=== PATIENT | male | born 1955 | race Caucasian/White ===

== ENCOUNTER 2017-06-12 16:43 | Inpatient (IN) | payer OTHER ==
[~2017-06-12] VITALS: Ht 175.3 cm; Wt 79.4 kg
[~2017-06-12 16:43] MED LIST: AUGMENTIN 875-1 EACH PO; LEVAQUIN500 M1 PO; PROMETHAZINE-C118 ML PO; TESSALON PERLE100 M1 PO; VENTOLIN HFA18 GM INH
[2017-06-12 18:09] LABS: ABSOLUTE BASOPHIL COUNT 0 /CUMM (0.0-0.2); ABSOLUTE EOSINOPHIL COUNT 0.2 /CUMM (0.0-0.7); ABSOLUTE LYMPH COUNT 0.8 /CUMM (1.2-3.4); ABSOLUTE MONOCYTE COUNT 0.5 /CUMM (0.10-0.60); BASOPHIL % 0.5 % (0.0-2.0); EOSINOPHIL % 3.1 % (0-5); GRANULOCYTE % 79.6 % (42.2-75.2); MEAN CORPUSCULAR HGB 29.7 PG (27.0-31.0); MEAN CORPUSCULAR HGB CONC 33.1 G/DL (33.0-37.0); MEAN CORPUSCULAR VOLUME 89.8 FL (80.0-94.0); MEAN PLATELET VOLUME 7.8 FL (7.4-10.4); PLATELET COUNT 294 /CUMM (130-400); RBC DISTRIBUTION WIDTH 13.5 % (11.5-14.5); RED BLOOD CELL CT 4.67 /CUMM (4.70-6.10); WHITE BLOOD CELL COUNT 7.5 /CUMM (4.8-10.8)
--- NOTE | 2017-06-12 18:37 | RADIOLOGY REPORT ---
EXAMINATION: XR CHEST CLINICAL INFORMATION: Shortness of breath COMPARISON: None TECHNIQUE: 2 views of the chest were obtained. FINDINGS: The lungs are well expanded. There is no focal consolidation, edema, or effusion. No pneumothorax. The cardiomediastinal silhouette is within normal limits. No acute osseous abnormality. IMPRESSION: No acute pulmonary findings.
--- NOTE | 2017-06-12 19:54 | ED DYSPNEA/ASTHMA COMPLAINT ---
History of Present Illness General Chief Complaint: Dyspnea (COPD, CHF, Other) Stated Complaint: DIFFICULTY BREATHING Source: patient Exam Limitations: no limitations Vital Signs & Intake/Output Vital Signs & Intake/Output Vital Signs Date Time Temp Pulse Resp B/P B/P Pulse O2 O2 Flow FiO2 Mean Ox Delivery Rate 06/12 2104 93 Nasal 2.0L Cannula 06/12 2032 84 Room Air 06/12 2019 90 06/12 1751 98.4 92 18 133/74 94 Room Air Room Air Allergies Coded Allergies: No Known Drug Allergies (11/27/15) Reconcile Medications Albuterol Sulfate (Ventolin Hfa) 18 GM HFA.AER.AD 2 PUF INH Q4-6 PRN PRN WHEEZE Amoxicillin/Potassium Clav (Augmentin 875-125 Tablet) 1 EACH TABLET 1 TAB PO BID bronchitis Benzonatate (Tessalon Perle) 100 MG CAPSULE 1-2 CAP PO TID PRN COUGH Levofloxacin (Levaquin) 500 MG TABLET 1 TAB PO DAILY BRONCHITIS Promethazine HCl/Codeine (Promethazine-Codeine Syrup) 118 ML SYRUP 5-10 ML PO Q4-6 PRN COUGH ONE HUNDRED TWENTY CC... [id number] Triage Note: PT TO ED WITH C/O SOB X 6 MONTHS, TODAY "COULDN'T WALK ACROSS THE ROOM, RAN OUT OF BREATH, CAN'T LAY DOWN, OR SLEEP, COUGH WHEN LAYING DOWN". Triage Nurses Notes Reviewed? yes Onset: Gradual Duration: 6 MONTHS Timing: recent history Severity: moderate Activities at Onset: none Prior Episodes/Possible Cause: occasional episodes Modifying Factors: Improves With: immobilization. Worsens With: movement. Associated Symptoms: cough HPI: Patient is a 61-year-old smoker presenting to the emergency department complaint of increasing shortness of breath over the past 6 months, and dry intermittently productive cough over the past several weeks. Has been using mved-ynl-dkftaic cough medication without relief. Denies any fevers or chills. Denies chest pain or palpitations. Patient has been using his 's nebulizer treatment with some relief at home. Has never been diagnosed with COPD. Has never seen a resource room special education teacher. Patient reports that he does have a history of diabetes, currently not on any medications. Denies any lower extremity edema. No hemoptysis. Still smoking daily. (Kathy Barajas) Past History Travel History Traveled to [place] past 21 day No Medical History Any Pertinent Medical History? see below for history Neurological: NONE EENT: NONE Cardiovascular: NONE Respiratory: pneumonia Gastrointestinal: NONE Hepatic: NONE Renal: NONE Musculoskeletal: NONE Psychiatric: NONE Endocrine: diabetes Blood Disorders: NONE Cancer(s): NONE ADMISSIONS CONSULTANT/Reproductive: NONE Surgical History Surgical History: none Psychosocial History What is your primary language Setswana Tobacco Use: Current Daily Use Daily Tobacco Use Amount/Type: => 5 Cigarettes daily ETOH Use: denies use Illicit Drug Use: denies illicit drug use Family History Hx Contributory? No (Kathy Barajas) Review of Systems Review of Systems Constitutional: Reports: no symptoms. Comments Review of systems: See HPI, All other systems negative. Constitutional, no chills fever or weight loss HEENT: No visual changes no sore throat no congestion Cardiovascular: No chest pain ,palpitation , orthopnea or ankle swelling Skin, no jaundice no rashes Respiratory: No hemoptysis GI: No nausea no vomiting : No dysuria No hematuria Muscle skeletal: no back pain, no neck pain, Neurologic: No numbness no confusion, NO headaches Psych: No stress anxiety or depression,. Heme/endocrine: No bruising no bleeding no polyuria or polydipsia Immunology: No splenectomy or history of AIDS (Kathy Barajas) Physical Exam Physical Exam General Appearance: well developed/nourished, no apparent distress, alert, awake , comfortable Respiratory: decreased breath sounds, wheezing Comments: Well-developed well-nourished person in no acute distress HEENT: Pupils equally round and reactive to light and accommodation. Nose is atraumatic. External auditory canal and Tympanic membranes clear. Pharynx normal. No swelling or edema. Neck: Supple, no lymphadenopathy Cardiovascular: Regular rate and rhythms no murmurs rubs or gallops Respiratory: Chest nontender. No respiratory distress.diffuse wheezing and diminished breath sounds bilaterally. Extremity: No edema Neuro: Alert oriented x3 Skin: No appreciable rash on exposed skin, skin is warm and dry. Psych: Mood and affect is normal, memory and judgment is normal. Core Measures ACS in differential dx? No CVA/TIA Diagnosis No Sepsis Present: No Sepsis Focused Exam Completed? No (Kathy Barajas) Progress Differential Diagnosis: bronchitis, costochondritis, CHF, COPD, pneumonia Plan of Care: Orders Procedure Date/time Status Consistent Carbohydrate 1 06/13 B Active Misc Message 06/12 2106 Active ED Holding Orders 06/12 2106 Active Admit to inpatient 06/12 2106 Active Vital Signs 06/12 2106 Active Code Status 06/12 2106 Active Patient Data 06/12 2100 Active RAPID VIRAL INFLUENZA A 06/12 2042 Active Intake & Output 06/12 2032 Active FingerStick- Glucose 06/12 1756 Active TROPONIN LEVEL 06/12 1756 Complete D-DIMER 06/12 1756 Complete COMPREHENSIVE METABOLIC PANEL 06/12 1756 Complete CBC WITHOUT DIFFERENTIAL 06/12 1756 Complete B-TYPE NATRIURETIC PEP (BNP) 06/12 1756 Complete EKG 06/12 1756 Active Laboratory Tests 06/12/171758: Anion Gap 12, Estimated GFR > 60, BUN/Creatinine Ratio 18.8, Glucose 291 H, Calcium 9.5, Total Bilirubin 0.3, AST 31, ALT 61, Alkaline Phosphatase 70, Troponin I < 0.01, Zwp-P-Fgeuetsgbzt Pept 27.0, Total Protein 6.5, Albumin 4.1, Globulin 2.4, Albumin/Globulin Ratio 1.7, D-Dimer High Sensitivty < 200, CBC w Diff NO MAN DIFF REQ, RBC 4.67 L, MCV 89.8, MCH 29.7, MCHC 33.1, RDW 13.5, MPV 7.8, Gran % 79.6 H, Lymphocytes % 10.0 L, Monocytes % 6.8, Eosinophils % 3.1, Basophils % 0.5, Absolute Granulocytes 6.0, Absolute Lymphocytes 0.8 L, Absolute Monocytes 0.5, Absolute Eosinophils 0.2, Absolute Basophils 0 Microbiology 06/12 2099 NASOPHARYN: Influenza Virus A & B Rapid Smear - RECD Patient given IM Solu-Medrol and breathing treatment on arrival for symptoms. Patient able to move better air. Patient desaturates to 84% with ambulation to the bathroom, positive increased work of breathing on exam. Patient will be admitted for COPD exacerbation. Continue neb treatments, IV Solu-Medrol, pulmonology consultation, medication management, oxygen titration. Diagnostic Imaging: Viewed by Me: Radiology Read. Discussed w/RAD: Radiology Read. Radiology Impression: ATIENT: EDWARD KELLOGG PRESENT AGE: 61 PATIENT ACCOUNT NO: [id number] : 54 LOCATION: [facility] ORDERING PHYSICIAN: Kathy CHAVARRIA SERVICE DATE: 06/12/17 EXAM TYPE: RAD - XRY-CHEST XRAY, TWO VIEWS EXAMINATION: XR CHEST CLINICAL INFORMATION : Shortness of breath COMPARISON: None TECHNIQUE: 2 views of the chest were obtained. FINDINGS: The lungs are well expanded. There is no focal consolidation , edema, or effusion. No pneumothorax. The cardiomediastinal silhouette is within normal limits. No acute osseous abnormality. IMPRESSION: No acute pulmonary findings. DICTATED BY: Beck Cobian MD DATE/TIME DICTATED:1832 SYRUP SHED SUPERVISOR:AMBIKA DATE/TIME TRANSCRIBED:06/12/171832 CONFIDENTIAL, DO NOT COPY WITHOUT APPROPRIATE AUTHORIZATION. <Electronically signed in Other Vendor System> SIGNED BY: Beck Cobian MD 06/12/171836 Initial ED EKG: NSR 92 BPM, ARTIFACT (Kathy Barajas) Departure Departure Time of Disposition: 2041 Disposition: STILL A PATIENT Condition: Stable Clinical Impression Primary Impression: Bronchitis Secondary Impressions: Hyperglycemia Referrals: Giovani Verdugo MD Patient Has No Primary Care Dr (PCP/Family) Departure Forms: Customer Survey General Discharge Information Admission Note Spoke With: Regan Rodriguez MD Documentation of Exam: Documentation of any treatments & extenuating circumstances including Concerns Regarding Discharge (functional status, medication knowledge or non-compliance, living conditions, etc.) that warrant an admission rather than observation: Patient requiring supplemental oxygen which is new for this patient, requiring serial DuoNeb treatments, IV steroids, pulmonology consultation, medication management, discharge at this time is medically harmful, patient will likely require multiple day stay to titrate off oxygen. (Kathy Barajas) PA/SHEET METAL INSTALLER Co-Sign Statement Statement: ED Attending supervision documentation- [X] I saw and evaluated the patient. I have also reviewed all the pertinent lab results and diagnostic results. I agree with the findings and the plan of care as documented in the PA's/SHEET METAL INSTALLER's documentation. Patient presents for evaluation of worsening dyspnea secondary to COPD exacerbation. Physical examination reveals mild to moderate respiratory distress with decreased air entry bilaterally and scattered end expiratory wheezing with a bronchospastic cough. [X] I have reviewed the ED Record and agree with the PA's/SHEET METAL INSTALLER's documentation. [] Additions or exceptions (if any) to the PAs/SHEET METAL INSTALLER's note and plan are summarized below: [] (Melissa VÁSQUEZ,Michael Ye) Critical Care Note Critical Care Note Critical Care Time: non-applicable (Patrick CHAVARRIA,Kathy)
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
--- NOTE | 2017-06-13 05:10 | Admission Certification ---
Admission Certification Certification Statement - As attending physician, I certify that at the time of - admission, based on clinical presentation, severity of - symptoms, need for further diagnostic testing and - therapeutic interventions, and risk of adverse outcomes - without in-hospital treatment, in my clinical assessment, - this patient requires an acute hospital stay for a minimum - of two nights or longer. I have also considered psychsocial - factors such as support system, advanced age, financial - issues, cognitive issues, and failed out-patient treatments, - past re-admission history, safety of patient, and lack of - compliance as applicable. Specific rationale supporting this admission is: Suspected COPD with exacerbation
[2017-06-13 08:16] LABS: ABSOLUTE BASOPHIL COUNT 0 /CUMM (0.0-0.2); ABSOLUTE EOSINOPHIL COUNT 0 /CUMM (0.0-0.7); ABSOLUTE GRANULOCYTE CT 4.1 /CUMM (1.4-6.5); ABSOLUTE LYMPH COUNT 0.4 /CUMM (1.2-3.4); ABSOLUTE MONOCYTE COUNT 0 /CUMM (0.10-0.60); BASOPHIL % 0.4 % (0.0-2.0); EOSINOPHIL % 0.1 % (0-5); HEMATOCRIT 42.8 % (42-52); MEAN CORPUSCULAR HGB 29.9 PG (27.0-31.0); MEAN CORPUSCULAR HGB CONC 33.6 G/DL (33.0-37.0); MEAN CORPUSCULAR VOLUME 88.8 FL (80.0-94.0); MEAN PLATELET VOLUME 8.7 FL (7.4-10.4); PLATELET COUNT 272 /CUMM (130-400); RBC DISTRIBUTION WIDTH 13.1 % (11.5-14.5); RED BLOOD CELL CT 4.82 /CUMM (4.70-6.10); WHITE BLOOD CELL COUNT 4.6 /CUMM (4.8-10.8)
--- NOTE | 2017-06-13 08:32 | CT SCAN REPORT ---
EXAMINATION: CT CHEST WITHOUT CONTRAST CLINICAL INFORMATION: Interstitial lung disease evaluate for mass lesions. History of asbestos exposure. COMPARISON: Chest x-ray dated 06/12/2016. TECHNIQUE: Multidetector volumetric CT imaging of the chest was done. Axial MIP volume rendering provided. Sagittal and coronal reformatted images were obtained. DLP: 321.03 mGy-cm FINDINGS: POST DOCTORAL FELLOW: No lines or tubes, no significant change compared to the prior chest x-ray of 06/12/2017. LUNGS: Multiple small calcified granulomas are present throughout the lungs. Pulmonary nodules (all are documented on CT series #6, the punctate calcified granulomas are not individually documented ): 1. Anterior aspect of the right upper lobe (97/526), measuring 4 mm. 2. Right upper lobe anterior pleural-based, 2 mm (152/526) 3. Nodular thickening along the minor fissure, measuring 4 mm (229/526) 4. Nodular thickening along the minor fissure, measuring 8 x 4 mm (273/526) 5. Groundglass nodule anterior medial right middle lobe, 4 x 6 mm (276/526) 6. 3 mm pleural-based nodule in the lateral aspect of the right lower lobe (350/526) 7. 4 mm posterior left lung base (428/526) 8. 2 mm parenchymal nodule lateral aspect of the left lower lobe (378/526) 9. 2 mm parenchymal nodule lateral aspect of the left lower lobe (317/526) 10. 2 mm groundglass nodule posterior left upper lobe (299/526) 11. 4 mm parenchymal nodule, lingula (291/526) 12. Pleural-based 3 mm pulmonary nodule posterior medial left lower lobe (268/526) 13 2 mm parenchymal nodule lateral aspect of the superior segment left upper lobe (232/526) 14. 3 mm pleural-based pulmonary nodule posterior aspect of the superior segment of the left upper lobe (58/526) There is a linear area of an increased density in the anterior medial aspect of the lower portion of the right upper lobe likely representing scar. Small cystic changes are present throughout the lungs, most prominent in the central portions of the bilateral upper lobes. Borderline central and peripheral bronchiectasis is present. MEDIASTINUM: Multiple small lymph nodes are present in the mediastinum and right hilar region, the largest is borderline measuring 8 mm in short axis dimension. Mild coronary artery calcifications are noted. PLEURA: There is no pleural effusion. AXILLA: No lymphadenopathy. UPPER ABDOMEN: There is a 3 mm calcific density which is just distal to the cystic duct within the common bile duct. There is mild generalized hepatic steatosis with focal areas of sparing, no focal hepatic or adrenal mass lesions are present at this time. OSSEOUS STRUCTURES: Focal degenerative changes in the mid to lower thoracic spine, multilevel. No focal or aggressive osseous lesions are present at this time. IMPRESSION: 1. No prominent pulmonary mass lesions are present at this time, however numerous small soft tissue pulmonary nodules are present as documented in detail above. Additionally, numerous punctate calcified granulomas are present which are not individually documented. No sean mediastinal or hilar lymphadenopathy is present. 2. Early chronic lung changes with small cystic changes most prominent in the central portions of the bilateral upper lobes, with borderline central and peripheral bronchiectasis. 3. Incidental finding is a 3 mm calcific density which appears to be within the common bile duct.
--- NOTE | 2017-06-13 09:12 | PN- Housestaff ---
Andre VÁSQUEZ,[place] 06/13/1712: Subjective Follow-up For: copd exacerbation Subjective: acute on chronic worsening of exertional dyspnea, coughing with exertion and deep inspiration, smoking until early this week, some post nasal drip and congestion, minimally productive cough, recent URI around a month ago Review of Systems Constitutional: Reports: see HPI. Objective Last 24 Hrs of Vital Signs/I&O Vital Signs Date Time Temp Pulse Resp B/P B/P Pulse O2 O2 Flow FiO2 Mean Ox Delivery Rate 06/13 1607 97.6 88 21 120/71 92 Room Air 06/13 1239 Room Air Room Air 06/13 1238 93 Room Air Room Air 06/13 1228 97.5 90 18 127/68 93 06/13 1000 98.6 81 18 128/63 94 06/13 0758 98.7 102 20 123/72 93 06/13 0653 98.6 90 21 151/74 92 Room Air 06/12 2250 98.0 94 24 142/78 94 Nasal 2.0L Cannula 06/12 2105 93 Nasal 2.0L Cannula 06/12 203 84 Room Air 06/12 2020 90 Intake & Output 06/13 1600 06/13 0800 06/13 0000 Intake Total 730 120 Output Total 500 Balance 230 120 Intake, IV 250 Intake, Oral 480 120 Number 1 Bowel Movements Output, Urine 500 Patient 79.379 kg Weight Weight Reported by Patient Measurement Method Physical Exam General Appearance: Alert, Oriented X3, Cooperative, No Acute Distress Cardiovascular: Regular Rate, Normal S1, Normal S2, No Murmurs Lungs: end inspiratory and expiratory wheezing, restricted air movement, diffuse rhonchi Abdomen: Normal Bowel Sounds, Soft, No Tenderness, No Masses Extremities: No Clubbing, No Cyanosis, No Edema, Normal Pulses Current Medications: Current Medications Sig/Yvette Start time Last Medication Dose Route Stop Time Status Admin Acetaminophen 650 MG Q6P PRN 06/13 0315 AC PO Albuterol Sulfate 3 ML BID 06/13 1233 AC 06/13 INH 1233 Albuterol Sulfate 3 ML Q4H PRN 06/13 0315 AC INH Albuterol Sulfate 3 ML ONCE ONE 06/12 2044 DC 06/12 INH 06/12 Albuterol Sulfate 3 ML ONCE ONE 06/12 2044 DC 06/12 INH 06/12 Albuterol Sulfate 3 ML ONCE ONE 06/12 2044 DC 06/12 INH 06/12 Albuterol Sulfate 3 ML ONCE ONE 06/12 1999 DC 06/12 INH 06/12 Azithromycin 500 MG DAILY 06/13 1000 AC 06/13 Dextrose/Water 250 ML IV 0756 Enoxaparin Sodium 40 MG DAILY 06/13 1000 AC 06/13 SC 0731 Enoxaparin Sodium 0 .STK-MED ONE 06/13 0732 DC SC Guaifenesin 600 MG Q12 06/13 0311 AC 06/13 PO 0940 Insulin Aspart 0 TIDAC 06/13 1200 AC 06/13 SC 1654 Ipratropium [place] 2.5 ML BID 06/13 2200 AC 06/13 INH 1233 Ipratropium [place] 2.5 ML DAILY 06/13 1000 DC INH Ipratropium [place] 2.5 ML ONCE ONE 06/13 0315 CAN INH 06/13 0316 Ipratropium [place] 2.5 ML ONCE ONE 06/12 1999 DC 06/12 INH 06/12 Magnesium Sulfate 0 .STK-MED ONE 06/12 2121 DC .ROUTE Magnesium Sulfate 2 GM ONCE ONE 06/12 2044 DC 06/12 IV 06/12 Methylprednisolone 40 MG Q8 06/13 0600 AC 06/13 IV 1335 Methylprednisolone 0 .STK-MED ONE 06/12 2007 DC .ROUTE Methylprednisolone 125 MG ONCE ONE 06/12 1999 DC 06/12 IM 06/12 Nicotine 14 MG DAILY 06/13 1700 AC 06/13 TOP 1742 Last 24 Hrs of Lab/Vincent Results Last 24 Hrs of Labs/Mics: Laboratory Tests 06/13/17 0640: Hemoglobin A1c Cancelled 06/13/17 0640: Anion Gap 15, Estimated GFR > 60, BUN/Creatinine Ratio 35.0 H, Troponin I < 0.01, CBC w Diff NO MAN DIFF REQ, RBC 4.82, MCV 88.8, MCH 29.9, MCHC 33.6, RDW 13.1, MPV 8.7, Gran % 91.2 H, Lymphocytes % 7.8 L, Monocytes % 0.5 L, Eosinophils % 0.1, Basophils % 0.4, Absolute Granulocytes 4.1, Absolute Lymphocytes 0.4 L, Absolute Monocytes 0 L, Absolute Eosinophils 0, Absolute Basophils 0 06/13/17 0554: Troponin I Cancelled Microbiology 06/12 2100 NASOPHARYN: Influenza Virus A & B Rapid Smear - COMP Assessment/Plan Assessment: 61 year old M with past medical history of extensive smoker and previously diet controlled diabetes presents for acute on chronic exertional dyspnea. Dyspnea: extensive smoking history and work exposure in [employer] Troponins negative Influenza negative Likely COPD exacerbation Continue solumedrol, eventual prednisone taper Outpatient pulmonology follow up for pulmonary nodules, PFT eval and COPD mgmt TRC evaluation Continue mucinex, spiriva, symbicort, nebulized albuterol and ipatropium Consider pulm follow up at [facility] Diabetes HgbA1C 12.0 Novolog sliding scale insulin Consider adding levemir Social work consult to facilitate health care insurance access possibly disability Diabetic diet DVT ppx-lovenox 40mg subcutaneous daily Full code Problem List: 1. Hyperglycemia 2. Bronchitis 3. COPD (chronic obstructive pulmonary disease) 4. Diabetes Pain Ratin Pain Location: n/a Pain Goal: Pain 4 or less Pain Plan: prn Tomorrow's Labs & Rationales: none Shawn Recinos MD 06/13/17 1416: Attending MD Review Statement Attending Statement Attending MD Statement: examined this patient, discuss w/resident/PA/ENDOSCOPY SPECIALTY TECHNICIAN, agreed w/resident/PA/ENDOSCOPY SPECIALTY TECHNICIAN, reviewed EMR data (avail) Attending Assessment/Plan: 61M PMH diet controlled diabetes, long smoking history presenting with several days of worsening dyspnea described as tightness and an inability to take a breath, with productive cough, admitted for COPD exacerbation. Patient is still wheezing today and feels short of breath at rest, but has improved slightly since yesterday. He is on room air and saturating well. He has no other complaints. CT chest shows no evidence of pneumonia but multiple soft tissue nodules. 1. COPD Exacerbation Plan - Continue on general medicine - Continue Solumedrol, taper tomorrow - Nebulizer treatments - Azithromycin - Pulmonary consult - Continue home medications - Nicotine patch - Outpatient follow up of lung nodules - DVT PPx
[2017-06-13 09:40] LABS: GRANULOCYTE % 91.2 % (42.2-75.2)
[2017-06-13 16:07] VITALS: BP 120/71
[2017-06-13 17:45] VITALS: BP 128/78
[2017-06-13 22:05] VITALS: BP 128/72
[2017-06-13 23:30] VITALS: BP 180/108
--- NOTE | 2017-06-14 00:05 | Event Note ---
Event Note Event Note: S: RR was called at 23:25 for unwitnessed fall. Patient had cough spill and was trying to get out of bed to set on the chair but fell face down and lost conciousness for 1 or 2 seconds. Patient couldn't be specific if he lost consciousness before or after he fell and hit his head. Nurse reported that she heard the thump and by the time she got to room 1 or 2 second after the sound he was already awake. Patient denied any confusion, blurry vision, headaches, chest pain, palpitation, shortness of breath. He reported pain in his forehead, bleeding from nose. Fall was unwitnessed, no urinary or stool incontinence. B: Patient was admitted yesterday for shortness of breath and cough for 6 month. Treated as COPD exacerbation with Solu-Medrol and azithromycin. Past medical history significant for diabetes not on medication, smoking 80 ppd and asbestos exposure. A: Vital signs temperature 97.2 axillary, blood pressure 180/108, heart rate 100 and regular, respiratory rate 20 saturating 93% on room air, Thomas Coma Scale 15, Accu-Chek 290 Patient is alert oriented 3, has a bruise on the right side of his nose, epistaxis moderate amount of blood, no clots, no bruise on his head, neck is supple, motor and sensory intact 4, cranial nerves intact, reflexes 2+ Cardiovascular S1, S2 regular no murmur Respiratory mild decrease in entry bilateral, no wheeze or rhonchi were appreciated R: Ice pack for bleeding Oxygen supplementation via mouth CT head without IV contrast CT facial bone CBC, BMP, troponin, EKG Will obtain prolactin to rule out seizure Orthostats Will order Robitussin with codeine for severe cough every 6 when necessary Patient doesn't want me to call family, given the fact that he is alert oriented Attending was notified Will continue to follow
--- NOTE | 2017-06-14 00:21 | CT SCAN REPORT ---
EXAMINATION: CT HEAD WITHOUT CONTRAST CT FACIAL BONES WITHOUT CONTRAST CLINICAL INFORMATION: Fall. Nasal trauma. COMPARISON: None. TECHNIQUE: Imaging was performed from the skull base to vertex without intravenous administration of contrast. In addition, helical noncontrast CT imaging was acquired through the facial bones and source images were reviewed along with axial reconstructions and sagittal and coronal MPRs. DLP: 1297.76 mGy-cm FINDINGS: HEAD: No intracranial mass, hemorrhage, or midline shift is visualized. The ventricles and sulci are age-appropriate. No extra-axial collections are identified. FACIAL BONES: Minimal displaced fracture of the right nasal bone at the tip of the nasal bones. There is no additional acute facial bone fracture. The paranasal sinuses are well aerated. The orbits are unremarkable in appearance. IMPRESSION: No acute intracranial process or discrete facial bone fracture.
[2017-06-14 00:37] VITALS: BP 180/108
[2017-06-14 01:20] VITALS: BP 130/80
[2017-06-14 01:38] LABS: ABSOLUTE BASOPHIL COUNT 0 /CUMM (0.0-0.2); ABSOLUTE EOSINOPHIL COUNT 0 /CUMM (0.0-0.7); ABSOLUTE GRANULOCYTE CT 11.1 /CUMM (1.4-6.5); ABSOLUTE LYMPH COUNT 0.5 /CUMM (1.2-3.4); ABSOLUTE MONOCYTE COUNT 0.4 /CUMM (0.10-0.60); BASOPHIL % 0.1 % (0.0-2.0); EOSINOPHIL % 0 % (0-5); HEMATOCRIT 41.7 % (42-52); MEAN CORPUSCULAR HGB 29.4 PG (27.0-31.0); MEAN CORPUSCULAR HGB CONC 33.1 G/DL (33.0-37.0); MEAN CORPUSCULAR VOLUME 88.7 FL (80.0-94.0); MEAN PLATELET VOLUME 8.5 FL (7.4-10.4); PLATELET COUNT 282 /CUMM (130-400)
[2017-06-14 01:47] LABS: GRANULOCYTE % 92.3 % (42.2-75.2)
--- NOTE | 2017-06-14 06:49 | PN- Housestaff ---
Andre VÁSQUEZ,[place] 06/14/17 0649: Subjective Follow-up For: copd exacerbation pulmonary nodules Subjective: patient had a rapid response yesterday, his cough has been producing alot of white foamy sputum and he sat at the edge of the bed to spit in the garbage. he lost consciousness briefly during a coughing fit and woke up on the floor immediately after striking his nose and right side of his forehead on the ground Review of Systems Constitutional: Reports: see HPI. Objective Last 24 Hrs of Vital Signs/I&O Vital Signs Date Time Temp Pulse Resp B/P B/P Pulse O2 O2 Flow FiO2 Mean Ox Delivery Rate 06/14 1429 97.6 108 20 130/88 91 Nasal 2.0L Cannula 06/14 0800 95 Nasal 2.0L Cannula 06/14 0734 97.7 90 18 134/76 94 06/14 0120 97.7 90 20 130/80 06/14 0120 97.7 90 20 130/80 96 Nasal 2.0L Cannula 06/14 0037 100 180/108 02/08 0000 94 Nasal 2.0L Cannula 06/13 2330 97.2 100 20 180/108 93 Nasal 2.0L Cannula 06/13 2205 98.1 97 19 128/72 94 Nasal 2.0L Cannula 06/13 1939 96 Nasal 2.0L Cannula 06/13 1745 96 Nasal 2.0L Cannula 06/13 1745 98.6 96 18 128/78 98 Nasal 2.0L Cannula 06/13 1607 97.6 88 21 120/71 92 Room Air Intake & Output 06/14 1600 08 0800 02 0000 Intake Total 1300 200 480 Output Total 900 775 450 Balance 400 -575 30 Intake, IV 400 100 Intake, Oral 900 100 480 Number 0 0 0 Bowel Movements Output, Urine 900 775 450 Patient 79.379 kg Weight Weight Reported by Patient Measurement Method Physical Exam General Appearance: Alert, Oriented X3, Cooperative, No Acute Distress Cardiovascular: Regular Rate, Normal S1, Normal S2, No Murmurs Lungs: restricted air movement, diffuse expiratory wheezing Abdomen: Normal Bowel Sounds, Soft, No Tenderness, No Masses Extremities: No Clubbing, No Cyanosis, No Edema, Normal Pulses Current Medications: Current Medications Sig/Yvette Start time Last Medication Dose Route Stop Time Status Admin Acetaminophen 650 MG Q6P PRN 06/13 0315 AC PO Albuterol Sulfate 3 ML BID 06/13 1233 AC 06/13 INH 1936 Albuterol Sulfate 3 ML Q4H PRN 06/13 0315 AC INH Azithromycin 500 MG DAILY 06/13 1000 AC 06/14 Dextrose/Water 250 ML IV 1021 Enoxaparin Sodium 40 MG DAILY 06/13 1000 DC 06/13 SC 0731 Guaifenesin 600 MG Q12 06/13 0311 AC 06/14 PO 1021 Guaifenesin/Codeine 10 ML Q6P PRN 06/13 2345 AC 06/14 Phosphate PO 0625 Insulin Aspart 0 AT BEDTIME 06/13 2200 AC 06/13 SC 2222 Insulin Aspart 0 TIDAC 06/13 1200 AC 06/14 SC 1210 Ipratropium [place] 2.5 ML BID 06/13 2200 DC 06/13 INH 1937 Methylprednisolone 40 MG Q12 06/14 2200 AC IV Methylprednisolone 40 MG Q8 06/13 0600 DC 06/14 IV 0621 Nicotine 14 MG DAILY 06/13 1700 AC 06/14 TOP 1021 Sodium Chloride 1,000 ML Q13H 06/14 0415 DC 06/14 IV 06/14 1714 0500 Last 24 Hrs of Lab/Vicnent Results Last 24 Hrs of Labs/Mics: Laboratory Tests 06/14/17 0750: Bicarbonate Actual 25, Mixed VBG pH 7.36, Mixed VBG pCO2 44, Mixed VBG O2 Saturation 46 H, Carboxyhemoglobin 0.4 L, O2 Concentration % 2.5L, O2 Delivery Method NC, Phlebotomy Draw Site RIGHT RADIAL 06/14/17 0620: Anion Gap 16, Estimated GFR > 60, BUN/Creatinine Ratio 45.0 H, Lactic Acid 1.8, Troponin I < 0.01, CBC w Diff MAN DIFF ORDERED, RBC 4.63 L, MCV 89.8, MCH 30.0, MCHC 33.4, RDW 13.4, MPV 8.6, Gran % 89.3 H, Lymphocytes % 4.4 L, Monocytes % 6.1, Eosinophils % 0, Basophils % 0.2, Absolute Granulocytes 12.3 H, Segmented Neutrophils 69, Band Neutrophils 22 H, Absolute Lymphocytes 0.6 L, Lymphocytes 6 L, Monocytes 3, Absolute Monocytes 0.8 H, Absolute Eosinophils 0, Absolute Basophils 0, Normocytic RBCs VERIFIED, Normochromic RBCs VERIFIED 06/14/17 0248: Lactic Acid Cancelled 06/14/17 0055: Phosphorus 4.4, Magnesium 1.9, Prolactin 7.2 06/14/17 0055: Anion Gap 17 H, Estimated GFR > 60, BUN/Creatinine Ratio 46.7 H, Troponin I < 0.01, CBC w Diff NO MAN DIFF REQ, RBC 4.70, MCV 88.7, MCH 29.4, MCHC 33.1, RDW 13.0, MPV 8.5, Gran % 92.3 H, Lymphocytes % 3.9 L, Monocytes % 3.7, Eosinophils % 0, Basophils % 0.1, Absolute Granulocytes 11.1 H, Absolute Lymphocytes 0.5 L, Absolute Monocytes 0.4, Absolute Eosinophils 0, Absolute Basophils 0 06/13/17 2336: Prolactin Cancelled Assessment/Plan Assessment: 61 year old M with past medical history of extensive smoker and previously diet controlled diabetes presents for acute on chronic exertional dyspnea. Dyspnea: extensive smoking history and work exposure in [employer] Troponins negative Influenza negative Likely COPD exacerbation Continue solumedrol, titrate from q8h to bid Outpatient pulmonology follow up for pulmonary nodules, PFT eval and COPD mgmt TRC evaluation Continue mucinex, spiriva, symbicort, nebulized albuterol and ipatropium Consider pulm follow up at [facility] Diabetes HgbA1C 12.0 Novolog sliding scale insulin Consider adding levemir Social work consult to facilitate health care insurance access possibly disability Diabetic diet DVT ppx-lovenox 40mg subcutaneous daily Full code Problem List: 1. Bronchitis 2. Hyperglycemia 3. COPD (chronic obstructive pulmonary disease) 4. Diabetes Pain Ratin Pain Location: forehead/nose Pain Goal: Pain 4 or less Pain Plan: prn Tomorrow's Labs & Rationales: none Shawn Recinos MD 06/14/17 1320: Attending MD Review Statement Attending Statement Attending MD Statement: examined this patient, discuss w/resident/PA/PERSONNEL SECURITY SPECIALIST, agreed w/resident/PA/PERSONNEL SECURITY SPECIALIST, reviewed EMR data (avail) Attending Assessment/Plan: 61M PMH diet controlled diabetes, long smoking history presenting with several days of worsening dyspnea described as tightness and an inability to take a breath, with productive cough, admitted for COPD exacerbation. CT chest shows no evidence of pneumonia but multiple soft tissue nodules. Overnight, patient had a coughing fit and passed out, falling out of bed and landing on his side and head. He reports it was due to coughing and he had no chest symptoms prior. He felt well after and coughed up a large, thick, yellow sputum. Today he feels better than yesterday, breathing still not back to baseline. Lungs still with wheezing L>R but improving. 1. COPD Exacerbation Plan - Continue on general medicine - Continue Solumedrol taper - Nebulizer treatments - Azithromycin - Continue home medications - Nicotine patch - Outpatient follow up of lung nodules - DVT PPx - Anticipated discharge tomorrow. Please send CMR to pharmacy for review - No labs tomorrow
[2017-06-14 07:34] VITALS: BP 134/76
[2017-06-14 08:24] LABS: ABSOLUTE BASOPHIL COUNT 0 /CUMM (0.0-0.2); ABSOLUTE EOSINOPHIL COUNT 0 /CUMM (0.0-0.7); ABSOLUTE GRANULOCYTE CT 12.3 /CUMM (1.4-6.5); ABSOLUTE LYMPH COUNT 0.6 /CUMM (1.2-3.4); ABSOLUTE MONOCYTE COUNT 0.8 /CUMM (0.10-0.60); BASOPHIL % 0.2 % (0.0-2.0); EOSINOPHIL % 0 % (0-5); GRANULOCYTE % 89.3 % (42.2-75.2); HEMATOCRIT 41.6 % (42-52); MEAN CORPUSCULAR HGB CONC 33.4 G/DL (33.0-37.0); MEAN CORPUSCULAR VOLUME 89.8 FL (80.0-94.0); MEAN PLATELET VOLUME 8.6 FL (7.4-10.4); PLATELET COUNT 283 /CUMM (130-400); RBC DISTRIBUTION WIDTH 13.4 % (11.5-14.5); RED BLOOD CELL CT 4.63 /CUMM (4.70-6.10); WHITE BLOOD CELL COUNT 13.8 /CUMM (4.8-10.8)
[2017-06-14 14:29] VITALS: BP 130/88
[2017-06-14] MEDS ORDERED: AZITHROMYCIN500 M3 PO (16:13)
[2017-06-14] MEDS ORDERED: PREDNISONE10 M2 PO (16:13)
[2017-06-14] MEDS ORDERED: METFORMIN HCL500 M3 PO (16:14)
[2017-06-14 20:48] VITALS: BP 138/80
[2017-06-14 21:57] VITALS: BP 138/80
[2017-06-15 05:27] VITALS: BP 118/84
--- NOTE | 2017-06-15 06:51 | PN- Housestaff ---
See Addendum Subjective Follow-up For: copd exacerbation pulmonary nodules Subjective: had some respiratory distress with tachypnea overnight improved with a nebulizer treatment remains on oxygen feels his breathing is substantially improved, persistent cough productive of white sputum afebrile Review of Systems Constitutional: Reports: see HPI. Objective Last 24 Hrs of Vital Signs/I&O Vital Signs Date Time Temp Pulse Resp B/P B/P Pulse O2 O2 Flow FiO2 Mean Ox Delivery Rate 06/15 526 98.5 92 20 118/84 94 Nasal 2.0L Cannula 06/15 0321 Nasal 2.0L Cannula 06/15 0000 94 Nasal 3.0L Cannula 06/14 2157 98.4 112 18 138/80 94 Nasal 2.0L Cannula 06/14 2048 98.4 112 18 138/80 94 Nasal 2.0L Cannula 06/14 2005 92 Nasal 2.0L Cannula 06/14 1600 Nasal 2.0L Cannula 06/14 1429 97.6 108 20 130/88 91 Nasal 2.0L Cannula 06/14 0800 95 Nasal 2.0L Cannula 06/14 0734 97.7 90 18 134/76 94 Intake & Output 06/15 0800 06/15 0000 06/14 1600 Intake Total 200 1300 Output Total 225 400 900 Balance -25 -400 400 Intake, IV 400 Intake, Oral 200 900 Number 0 Bowel Movements Output, Urine 225 400 900 Physical Exam General Appearance: Alert, Oriented X3, Cooperative, No Acute Distress Cardiovascular: Regular Rate, Normal S1, Normal S2, No Murmurs Lungs: diminished at the bases, no audible wheezing Abdomen: Normal Bowel Sounds, Soft, No Tenderness, No Masses Extremities: No Clubbing, No Cyanosis, No Edema, Normal Pulses Current Medications: Current Medications Sig/Yvette Start time Last Medication Dose Route Stop Time Status Admin Acetaminophen 650 MG Q6P PRN 06/13 0315 AC PO Albuterol Sulfate 3 ML BID 06/13 1233 AC 06/15 INH 0319 Albuterol Sulfate 3 ML Q4H PRN 06/13 0315 AC INH Azithromycin 500 MG DAILY 06/13 1000 AC 06/14 Dextrose/Water 250 ML IV 1021 Guaifenesin 600 MG Q12 06/13 0311 AC 06/14 PO 2122 Guaifenesin/Codeine 10 ML Q6P PRN 06/13 2345 AC 06/14 Phosphate PO 2122 Insulin Aspart 0 AT BEDTIME 06/13 2200 AC 06/13 SC 2222 Insulin Aspart 0 TIDAC 06/13 1200 AC 06/14 SC 1210 Ipratropium [place] 2.5 ML BID 06/13 2200 DC 06/13 INH 1937 Methylprednisolone 40 MG Q12 06/14 2200 DC 06/14 IV 2122 Methylprednisolone 40 MG Q8 06/13 0600 DC 06/14 IV 0621 Nicotine 14 MG DAILY 06/13 1700 AC 06/14 TOP 1021 Prednisone 50 MG DAILY 06/15 1000 UNVr PO Sodium Chloride 2 SPRAY Q4P PRN 06/14 1600 AC HAYDEN Sodium Chloride 1,000 ML Q13H 06/14 0415 DC 06/14 IV 06/14 1714 0500 Last 24 Hrs of Lab/Vincent Results Last 24 Hrs of Labs/Mics: Laboratory Tests 06/14/17 0750: Bicarbonate Actual 25, Mixed VBG pH 7.36, Mixed VBG pCO2 44, Mixed VBG O2 Saturation 46 H, Carboxyhemoglobin 0.4 L, O2 Concentration % 2.5L, O2 Delivery Method NC, Phlebotomy Draw Site RIGHT RADIAL Assessment/Plan Assessment: 61 year old M with past medical history of extensive smoker and previously diet controlled diabetes presents for acute on chronic exertional dyspnea. Dyspnea: extensive smoking history and work exposure in [employer] Influenza negative COPD exacerbation Change to PO prednisone today Outpatient pulmonology follow up for pulmonary nodules, PFT eval and COPD mgmt TRC evaluation Continue mucinex, spiriva, symbicort, nebulized albuterol and ipatropium Consider pulm follow up at [facility] Titrate off oxygen and check ambulatory pulse oximetry, possible need for home oxygen Diabetes HgbA1C 12.0 Novolog sliding scale insulin Blood sugars expected to improve as steroids tapered Diabetic diet DVT ppx-lovenox 40mg subcutaneous daily Full code Problem List: 1. Bronchitis 2. Hyperglycemia 3. COPD (chronic obstructive pulmonary disease) 4. Diabetes Pain Ratin Pain Location: n/a Pain Goal: Pain 4 or less Pain Plan: prn Tomorrow's Labs & Rationales: none
[2017-06-15] MEDS ORDERED: SYMBICORT 16010.2 GM INH ×2 (09:25→12:52)
[2017-06-15] MEDS ORDERED: SPIRIVA18 MCG INH ×2 (09:25→12:52)
[2017-06-15] MEDS ORDERED: VENTOLIN HFA18 GM INH ×2 (09:26→12:52)
--- NOTE | 2017-06-15 09:27 | Patient Discharge Instructions ---
Discharge Instructions General Discharge Information You were seen/treated for: copd exacerbation pulmonary nodules Special Instructions: Follow up with Dr. Verdugo in 2 weeks. You can also go to the [facility] at [place] in [place]. Acute Coronary Syndrome Inclusion Criteria At DC or during hospital stay patient has or had the following: ACS DIAGNOSIS No Discharge Core Measures Meds if any: Prescribed or Continued at Discharge Meds if any: NOT Prescribed or Continued at Discharge Congestive Heart Failure Inclusion Criteria At DC or during hospital stay patient has or had the following: CHF DIAGNOSIS No Discharge Core Measures Meds if any: Prescribed or Continued at Discharge Meds if any: NOT Prescribed or Continued at Discharge Cerebrovascular accident Inclusion Criteria At DC or during hospital stay patient has or had the following: CVA/TIA Diagnosis No Discharge Core Measures Meds if any: Prescribed or Continued at Discharge Meds if any: NOT Prescribed or Continued at Discharge Venous thromboembolism Inclusion Criteria VTE Diagnosis No VTE Type NONE VTE Confirmed by (Test) NONE Discharge Core Measures - Per Current guidelines, there needs to be overlap - treatment for the first 5 days of Warfarin therapy. - If discharged on Warfarin prior to 5 days of - overlap therapy, the patient will need to be - assessed for post discharge needs including - *Post discharge parental anticoagulation - *Warfarin and/or parental anticoagulation education - *Follow up date to check INR post discharge At least 5 days overlap therapy as Inpatient No Meds if any: Prescribed or Continued at Discharge Note: Overlap Therapy is Warfarin and Anticoagulant Meds if any: NOT Prescribed or Continued at Discharge
--- NOTE | 2017-06-15 12:51 | Discharge Summary ---
Hospital Course Allergies: Coded Allergies: No Known Drug Allergies (11/27/15) Discharge Instructions Medications at Discharge Discharge Medications: Start taking the following new medications: Azithromycin (Azithromycin) 500 MG TABLET 1 Tablet ORAL DAILY Qty = 3 No Refills Prednisone (Prednisone) 10 MG TABLET 1 Tablet ORAL TWICE DAILY Qty = 30 No Refills Instructions: take 5 tabs 50mg x 2 days take 4 tabs 40mg x 2 tabs take 3 tabs 30mg x 2 days take 2 tabs 20mg x 2 days take 1 tab 10mg x 2 days then stop Metformin HCl (Metformin HCl) 500 MG TABLET 1 Tablet ORAL TWICE DAILY Qty = 60 No Refills Tiotropium [place] (Spiriva) 18 MCG CAP.W.DEV 1 Capsule Inhale through mouth DAILY Qty = 30 No Refills Budesonide/Formoterol Fumarate (Symbicort 160-4.5 Mcg Inhaler) 160 MCG-4.5 MCG/ ACTUATION HFA.AER.AD 2 Puff Inhale through mouth TWICE DAILY Qty = 1 No Refills The following medications have been changed: Old: Albuterol Sulfate (Ventolin Hfa) 18 GM HFA.AER.AD 2 Puff Inhale through mouth EVERY 4-6 HOURS NEEDED as needed for WHEEZE Qty = 1 New: Albuterol Sulfate (Ventolin Hfa) 90 MCG HFA.AER.AD 2 Puff Inhale through mouth EVERY 4-6 HOURS NEEDED as needed for COPD Qty = 1
[2017-06-15] MEDS ORDERED: AZITHROMYCIN500 M3 PO (12:52)
[2017-06-15] MEDS ORDERED: METFORMIN HCL500 M3 PO (12:52)
[2017-06-15] MEDS ORDERED: PREDNISONE10 M2 PO (12:52)
== END 2017-06-15 13:55 | DRG 140 ==
LOC: ERH 16:43 → ERHI 21:07 → 2NB 21:07 → ERHI 06-13 10:59 → ENRESERV 06-13 16:14 → ENTRNSPT 06-13 17:24 → EDTRNSPTSTS 06-13 17:45 → 2NB 06-13 17:56 → CMPTRNSPT 06-13 18:00 → 2NB 06-14 08:24 → ENTRNSPT 06-15 13:44 → EDTRNSPTSTS 06-15 13:49 → 2NB 06-15 13:55 → CMPTRNSPT 06-15 13:59
PROVIDERS: Physician Assistant; Student in an Organized Health Care Education/Training Program
DX: J44.1 Chronic obstructive pulmonary disease with (acute) exacerbation (principal); E11.65 Type 2 diabetes mellitus with hyperglycemia; Z72.0 Tobacco use; R91.8 Other nonspecific abnormal finding of lung field; Z77.090 Contact with and (suspected) exposure to asbestos; R06.09 Other forms of dyspnea; W06.XXXA Fall from bed, initial encounter; Y92.230 Patient room in hospital as the place of occurrence of the external cause; J40 Bronchitis, not specified as acute or chronic
CPT/HCPCS: 2NBSP; ERO; 36415; 71046; 82436; 87804; 87804-59; 93005; 93010; 94799; J0456; J1650; J2920; J2930; J7060

== ENCOUNTER 2017-09-25 16:26 | Inpatient (IN) | payer OTHER ==
[~2017-09-25] VITALS: Ht 177.8 cm; Wt 77.1 kg
[~2017-09-25 16:26] MED LIST changes: +AZITHROMYCIN500 M3 PO; +CARAFATE1 G1 PO; +METFORMIN HCL500 M3 PO; +PREDNISONE10 M2 PO; +SPIRIVA18 MCG INH; +SYMBICORT 16010.2 GM INH
--- NOTE | 2017-09-25 16:48 | Admission Core Measures ---
Acute Coronary Syndrome (CM) ACS Core Measures Acute Coronary Syndrome Diagnosis No Congestive Heart Failure (NEW) CHF Core Measures Congestive Heart Failure Diagnosis No Cerebrovascular Accident (NEW) CVA Core Measures CVA/TIA Diagnosis No Venous Thromboembolism VTE Core Phyllis (View Protocol) VTE Risk Factors Age>40 No Mechanical VTE Prophylaxis d/t N/A MechProphylax Ordered No VTE Pharm Prophylaxis d/t Surgical Contraindication Problem List As ranked by this Provider includes Assessment & Plan 1. Cholecystitis HOME MEDS Home Med List Albuterol Sulfate (Ventolin Hfa) 90 MCG HFA.AER.AD 2 PUF INH Q4-6 PRN PRN COPD Azithromycin 500 MG TABLET 1 TAB PO DAILY bronchitis Budesonide/Formoterol Fumarate (Symbicort 160-4.5 Mcg Inhaler) 160 MCG-4.5 MCG/ ACTUATION HFA.AER.AD 2 PUF INH BID COPD Metformin HCl 500 MG TABLET 1 TAB PO BID dm Prednisone 10 MG TABLET 1 TAB PO BID taper Sucralfate (Carafate) 1 GRAM TABLET 1 TAB PO 4 TIMES/DAY stomach pain Tiotropium [place] (Spiriva) 18 MCG CAP.W.DEV 1 CAP INH DAILY COPD
--- NOTE | 2017-09-25 17:03 | History & Physical Pre-Op ---
General Information and HPI MD Statement: I have seen and personally examined EDWARD KELLOGG and documented this H&P. The patient is a 61 year old M who presented with a patient stated chief complaint of [abdominal pain]. History of Present Illness: The patient seen in follow-up in the office today for biliary colic. He was seen in the emergency room a few days ago with his second episode of severe epigastric and right upper quadrant abdominal pain. Findings on CT scan are concerning for acute cholecystitis and/or choledocholithiasis. His liver tests were normal. Patient had resolution of his symptoms and was sent home after tolerance of a diet. Return to the office today with incompletely resolved pain. He cannot eat solid food without recurrence of his right upper quadrant pain. No nausea or vomiting. No fevers chills or sweats Allergies/Medications Allergies: Coded Allergies: No Known Drug Allergies (11/27/15) Home Med list Albuterol Sulfate (Ventolin Hfa) 90 MCG HFA.AER.AD 2 PUF INH Q4-6 PRN PRN COPD . Azithromycin 500 MG TABLET 1 TAB PO DAILY bronchitis . Budesonide/Formoterol Fumarate (Symbicort 160-4.5 Mcg Inhaler) 160 MCG-4.5 MCG/ ACTUATION HFA.AER.AD 2 PUF INH BID COPD . Metformin HCl 500 MG TABLET 1 TAB PO BID dm . Prednisone 10 MG TABLET 1 TAB PO BID taper take 5 tabs 50mg x 2 days take 4 tabs 40mg x 2 tabs take 3 tabs 30mg x 2 days take 2 tabs 20mg x 2 days take 1 tab 10mg x 2 days then stop. Sucralfate (Carafate) 1 GRAM TABLET 1 TAB PO 4 TIMES/DAY stomach pain Tiotropium [place] (Spiriva) 18 MCG CAP.W.DEV 1 CAP INH DAILY COPD . 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 Cardiovascular: Reports: no symptoms. Respiratory: Reports: no symptoms. GI: Reports: see HPI, abdominal pain. Genitourinary: Reports: no symptoms. Musculoskeletal: Reports: joint pain. Skin: Reports: no symptoms. Exam & Diagnostic Data Physical Exam: General: Looks stated age average body habitus no distress HEENT: Anicteric PERRLA EOMI Lungs: Clear to auscultation bilaterally without wheezes Heart regular with no murmurs Abdomen: Soft tender in the epigastrium and right upper quadrant with equivocal Deleon sign no hernia no mass Extremities: No cyanosis clubbing or edema Assessment/Plan Assessment/Plan: Patient presents with unrelenting abdominal pain related to gallstones. CT scan performed last week was concerning for choledocholithiasis. In review of his imaging, it appears the stones are in his distal cystic duct. Persistence of his pain he will need laparoscopic cholecystectomy tomorrow. Repeat LFTs tonight. Consider ERCP and/or intraoperative cholangiogram if they are elevated. As Ranked By This Provider Problem List: 1. Cholecystitis Copies To: Lucina VÁSQUEZ,Giovani Castro; Jeremiah VÁSQUEZ,Gabriela
[2017-09-25 17:04] VITALS: BP 118/80
[2017-09-25 19:01] LABS: ABSOLUTE BASOPHIL COUNT 0.1 /CUMM (0.0-0.2); ABSOLUTE EOSINOPHIL COUNT 0.3 /CUMM (0.0-0.7); ABSOLUTE LYMPH COUNT 2.2 /CUMM (1.2-3.4); ABSOLUTE MONOCYTE COUNT 0.7 /CUMM (0.10-0.60); MEAN PLATELET VOLUME 8.2 FL (7.4-10.4); WHITE BLOOD CELL COUNT 8.1 /CUMM (4.8-10.8)
[2017-09-25 19:03] LABS: ABSOLUTE GRANULOCYTE CT 4.9 /CUMM (1.4-6.5); BASOPHIL % 0.8 % (0.0-2.0); EOSINOPHIL % 3.7 % (0-5); GRANULOCYTE % 60.3 % (42.2-75.2); MEAN CORPUSCULAR HGB 31.1 PG (27.0-31.0); MEAN CORPUSCULAR HGB CONC 33.6 G/DL (33.0-37.0); MEAN CORPUSCULAR VOLUME 92.4 FL (80.0-94.0); PLATELET COUNT 348 /CUMM (130-400); RBC DISTRIBUTION WIDTH 13.5 % (11.5-14.5); RED BLOOD CELL CT 4.76 /CUMM (4.70-6.10)
[2017-09-25 19:07] LABS: PT 11.8 SEC (9.4-12.5)
[2017-09-25 21:06] VITALS: BP 110/73
[2017-09-26 06:11] VITALS: BP 138/68
--- NOTE | 2017-09-26 15:29 | Operative Report ---
Operative/Inv Procedure Report Surgery Date: 09/26/17 Name of Procedure: Laparoscopic cholecystectomy Pre-Operative Diagnosis: acute cholecystitis Post-Operative Diagnosis: same Estimated Blood Loss: less than 50ml Surgeon/Clinical Trial Data Manager: Zander VÁSQUEZ,Frank Coker/DEON Sears Anesthesia: general endotracheal tube Specimens: gallbladder Operative Indication: see preop hp Operative/Procedure Note Note: After informed consent patient is brought to the operating room and laid supine. General anesthesia was obtained and her abdomen was prepped and draped. The skin above the umbilicus infiltrated with local anesthesia and a curvilinear incision made sharply. We came down through the subcutaneous tissues bluntly and grasped the fascia with [place]'s. A fasciotomy was created sharply and stay sutures placed. The peritoneum was entered sharply and a blunt Baez port was placed. Pneumoperitoneum was achieved. 3, 5 mm ports were placed in the epigastrium and right upper quadrant after local anesthesia was instilled and under direct vision the camera. She's placed in reverse Trendelenburg and rotated towards the left. The gallbladder is identified. It was chronically inflamed and thickened. It was grasped at the dome and retracted towards the head. Infundibulum was then grasped. Adhesions to the undersurface were taken down with blunt and cautery dissection. We dissected both sides the triangle [place] peritoneal tissue with cautery. There were hyperemic inflammatory changes. The artery was medial and its normal anatomic position. It was cauterized medially to allow it to be mobilized away from the duct. [place] was cleared of areolar tissue with cautery. The arteries and duct were doubly ligated with clips. Gallbladder is removed from the fossa electrocautery. It was placed in Endo Catch bag and cinched up. Right upper quadrant was and suction irrigated normal saline. Hemostasis achieved with cautery. The ports were then removed and the CC: En VÁSQUEZ,Derek; Jeremiah VÁSQUEZ,Gabriela
--- NOTE | 2017-09-26 15:32 | Patient Discharge Instructions ---
Discharge Instructions General Discharge Information You were seen/treated for: Cholecystitis, cholelithiasis You had these procedures: Laparoscopic cholecystectomy 09/26/17 Watch for these problems: Increased pain, fever > 101.3, chills, nausea, vomiting, redness, swelling or drainage from incisions Do not soak the wound: Yes No bath, but you may shower: Yes Other wound care: May remove dressings and shower in 48 hours. No baths/swimming/hot tubs until you follow up with Dr. Fermin Diet Continue normal diet: No Recommended Diet: Low Fat Activity Full Activity/No Limits: No Activity Self Limited: Yes Pounds, do NOT lift more than: 10 Other activity limits: No heavy lifting or strenous activity x 4 weeks Acute Coronary Syndrome Inclusion Criteria At DC or during hospital stay patient has or had the following: ACS DIAGNOSIS No Discharge Core Measures Meds if any: Prescribed or Continued at Discharge Meds if any: NOT Prescribed or Continued at Discharge Congestive Heart Failure Inclusion Criteria At DC or during hospital stay patient has or had the following: CHF DIAGNOSIS No Discharge Core Measures Meds if any: Prescribed or Continued at Discharge Meds if any: NOT Prescribed or Continued at Discharge Cerebrovascular accident Inclusion Criteria At DC or during hospital stay patient has or had the following: CVA/TIA Diagnosis No Discharge Core Measures Meds if any: Prescribed or Continued at Discharge Meds if any: NOT Prescribed or Continued at Discharge Venous thromboembolism Inclusion Criteria VTE Diagnosis No VTE Type NONE VTE Confirmed by (Test) NONE Discharge Core Measures - Per Current guidelines, there needs to be overlap - treatment for the first 5 days of Warfarin therapy. - If discharged on Warfarin prior to 5 days of - overlap therapy, the patient will need to be - assessed for post discharge needs including - *Post discharge parental anticoagulation - *Warfarin and/or parental anticoagulation education - *Follow up date to check INR post discharge At least 5 days overlap therapy as Inpatient No Meds if any: Prescribed or Continued at Discharge Note: Overlap Therapy is Warfarin and Anticoagulant Meds if any: NOT Prescribed or Continued at Discharge
[2017-09-26 16:52] VITALS: BP 118/70
[2017-09-26] MEDS ORDERED: PERCOCET 5-3251 EACH PO (17:09)
--- NOTE | 2017-09-26 17:18 | PN- General Surgery ---
Subjective Subjective: POSTOP CHECK Pain currently controlled. Eager to have liquids. Denies nausea, vomting or voiding. Passing flatus. Offers no complaints. Objective Vital Signs and I&Os Vital Signs Date Time Temp Pulse Resp B/P B/P Pulse O2 O2 Flow FiO2 Mean Ox Delivery Rate 09/26 0611 97.9 60 20 138/68 96 Room Air 09/25 2105 98.0 70 18 110/73 94 Intake & Output 09/26 1600 09/26 0800 09/26 0000 09/25 1600 09/25 0809/25 0000 Intake Total 525 600 930 Output Total 450 650 Balance 75 -50 930 Intake, IV 525 600 450 Intake, Oral 0 480 Number 0 Bowel Movements Output, Urine 450 650 Patient 170 lb Weight Weight Reported by Patient Measurement Method Physical Exam: Vitals: afebrile, VSS Gen - resting comfortably nad Cardiac - S1S2 noted Lungs - diminished at bases, CTAB Abd - soft, nondistended, 4 dressings c/d/i, hypoactive bs, appropriately tender per-incisionally, no rebound or guarding Ext - no edema or calf tenderness Current Medications: Current Medications Sig/Yvette Start time Last Medication Dose Route Stop Time Status Admin Albuterol Sulfate 2 PUF Q4P PRN 09/25 181 AC INH Budesonide/ 2 PUF BID 09/25 2100 09/26 Formoterol Fumarate INH 0853 Dextrose/Sodium 1,000 ML .[id number] 09/25 1700 09/26 Chloride IV 0615 Heparin Sodium 5,000 UNIT Q8 09/25 2200 09/26 (Porcine) SC 0615 Insulin Aspart 0 TIDAC 09/27 0800 AC SC Insulin Human Regular 0 Q6 09/26 0100 DC 09/26 SC 1150 Insulin Human Regular 0 TIDAC/HS 09/25 2100 [facility] 09/26 0100 Morphine Sulfate 4 MG Q2 HRS NEEDED PRN 09/25 181 AC IV Ondansetron HCl 4 MG Q8P PRN 09/25 1700 AC IV Oxycodone HCl 5 MG Q6P PRN 09/25 181 AC PO Oxycodone HCl 10 MG Q6P PRN 09/25 1815 AC PO Patient Medication 1 ED ONE ONE 09/26 1145 DC Teaching ED 09/26 1146 Tiotropium [place] 1 PUF DAILY 09/26 0900 AC 09/26 INH 0853 Results Last 48 Hours of Labs: Laboratory Tests 09/25 1745 Chemistry Sodium (137 - 145 mmol/L) 145 Potassium (3.5 - 5.1 mmol/L) 4.7 Chloride (98 - 107 mmol/L) 103 Carbon Dioxide (22 - 30 mmol/L) 29 Anion Gap (5 - 16) 12 BUN (9 - 20 mg/dL) 11 Creatinine (0.7 - 1.2 mg/dL) 0.7 Estimated GFR (>60 ml/min) > 60 BUN/Creatinine Ratio (7 - 25 %) 15.7 Total Bilirubin (0.2 - 1.3 mg/dL) 0.4 Direct Bilirubin (< 0.4 mg/dL) 0.1 AST (17 - 59 U/L) 20 ALT (21 - 72 U/L) 29 Alkaline Phosphatase (< 127 U/L) 51 Total Protein (6.3 - 8.2 g/dL) 6.6 Albumin (3.5 - 5.0 g/dL) 4.0 Coagulation PT (9.4 - 12.5 SEC) 11.8 INR (0.90 - 1.17) 1.08 Hematology CBC w Diff NO MAN DIFF REQ WBC (4.8 - 10.8 /CUMM) 8.1 RBC (4.70 - 6.10 /CUMM) 4.76 Hgb (14.0 - 18.0 G/DL) 14.8 Hct (42 - 52 %) 44.0 MCV (80.0 - 94.0 FL) 92.4 MCH (27.0 - 31.0 PG) 31.1 H MCHC (33.0 - 37.0 G/DL) 33.6 RDW (11.5 - 14.5 %) 13.5 Plt Count (130 - 400 /CUMM) 348 MPV (7.4 - 10.4 FL) 8.2 Gran % (42.2 - 75.2 %) 60.3 Lymphocytes % (20.5 - 51.1 %) 26.6 Monocytes % (1.7 - 9.3 %) 8.6 Eosinophils % (0 - 5 %) 3.7 Basophils % (0.0 - 2.0 %) 0.8 Absolute Granulocytes (1.4 - 6.5 /CUMM) 4.9 Absolute Lymphocytes (1.2 - 3.4 /CUMM) 2.2 Absolute Monocytes (0.10 - 0.60 /CUMM) 0.7 H Absolute Eosinophils (0.0 - 0.7 /CUMM) 0.3 Absolute Basophils (0.0 - 0.2 /CUMM) 0.1 Assessment/Plan Assessment/Plan 61 M s/p lap sam due to cholecysitits, cholelithiasis, recovering well postoperatively Advance diet as tolerated to fulls/low fat Cont IVF Pain regimen prn ISS on board Await postop void DVT ppx - alps, hsq, ambulate Encourage IS D/c today pending diet, postop void D/c instructions explained in detail D/w Dr. Fermin Core Measures Venous Thromboembolism VTE Risk Factors Age>40 No Mechanical VTE Prophylaxis d/t N/A MechProphylax Ordered No VTE Pharm Prophylaxis d/t Surgical Contraindication
== END 2017-09-26 18:04 | DRG 263 ==
LOC: 2NB 16:26 → ENTRNSPT 09-26 16:27 → EDTRNSPTSTS 09-26 16:35 → EDTRNSPT 09-26 16:35 → CMPTRNSPT 09-26 17:06 → 2NB 09-26 18:04
PROVIDERS: Physician Assistant
PROC: 0FT44ZZ Resection of Gallbladder, Percutaneous Endoscopic Approach (ICD-10-PCS; principal; 2017-09-26)
DX: K80.40 Calculus of bile duct with cholecystitis, unspecified, without obstruction (principal); J44.9 Chronic obstructive pulmonary disease, unspecified; Z79.84 Long term (current) use of oral hypoglycemic drugs; Z79.51 Long term (current) use of inhaled steroids; Z79.52 Long term (current) use of systemic steroids; E11.9 Type 2 diabetes mellitus without complications
CPT/HCPCS: 2NBSP; 36415; 74177; 81001; 82436; 93005; 93010; C9399; J0131; J0690; J1644; J1815; J3490; J7042